=== PATIENT | female | born 1965 | race Caucasian/White ===

== ENCOUNTER → 2017-04-18 | Outpatient (CLI) | payer OTHER | LOC: FIMAGING 14:39 | PROVIDERS: ATTEND Obstetrics & Gynecology Gynecology | DX: Z12.31 Encounter for screening mammogram for malignant neoplasm of breast (principal) | CPT/HCPCS: G0202 ==

== ENCOUNTER → 2017-04-30 | Outpatient (CLI) | payer OTHER | LOC: FIMAGING 10:04 | PROVIDERS: ATTEND Obstetrics & Gynecology Gynecology | DX: Z12.39 Encounter for other screening for malignant neoplasm of breast (principal); R92.8 Other abnormal and inconclusive findings on diagnostic imaging of breast | CPT/HCPCS: G0206 ==

== ENCOUNTER → 2018-04-23 | Outpatient (CLI) | payer OTHER | LOC: FIMAGING 15:29 | PROVIDERS: ATTEND Obstetrics & Gynecology Gynecology | DX: Z12.31 Encounter for screening mammogram for malignant neoplasm of breast (principal) ==